=== PATIENT | female | born 1985 | race Caucasian/White ===

== ENCOUNTER 2018-11-30 11:02 | Outpatient (CLI) | payer MEDICAID ==
[~2018-11-30] VITALS: Ht 167.6 cm; Wt 80.6 kg
[~2018-11-30 11:02] MED LIST: ACET325T33 PO; FER325 PO; IBUP-1561 PO; PNV11TAB PO
[2018-11-30 11:18] VITALS: BP 109/65; PULSE 78; RESP 18; Ht 167.6 cm; Wt 80.6 kg
--- NOTE | 2018-11-30 15:57 | TRIAGE ---
OB Triage Datetime Report Generated by CPN: 11/30/2018 15:57 Datetime: 11/30/2018 15:16 Stage of : OB Triage Datetime: 11/30/2018 14:35 Labor Evaluation Frequency: 8-10 Monitor Mode: External Duration (sec)2399: 50-60 Quality: Mild Pattern: Normal: <= 5 Contractions in 10 Minutes Resting Tone [place]: Relaxed Heart Rate FHR Baseline Rate: 135 Monitor Mode: Internal Scalp Electrode Variability: Moderate 6-25 bpm Accelerations: 10X10 Decelerations: None Category: Category I Pain Assessment Pain Scale: 0 Pain Presence: None/Denies Pain Type: N/A Pain Goal: 3 Pain Relief Measures: Comfort Measures Datetime: 11/30/2018 13:33 Stage of : OB Triage Datetime: 11/30/2018 13:12 Labor Evaluation Frequency: 0 Monitor Mode: External Pattern: Normal: <= 5 Contractions in 10 Minutes Resting Tone [place]: Relaxed Heart Rate FHR Baseline Rate: 145 Monitor Mode: External US Variability: Moderate 6-25 bpm Accelerations: 10X10 Decelerations: None Category: Category I Pain Assessment Pain Scale: 0 Pain Presence: None/Denies Pain Type: N/A Pain Goal: 3 Pain Relief Measures: Comfort Measures Datetime: 11/30/2018 11:39 Stage of : OB Triage Assessment Type: Triage Maternal Assessment Level of Consciousness: Keenly Alert, Responsive DTR's/Clonus: DTRs 2+; No Clonus Headache: Denies Blurred Vision: No Respiratory Effort: Unlabored; Regular Rhythm; Equal Expansion Breath Sounds, Left: Clear and Equal Breath Sounds, Right: Clear and Equal Nausea/Vomiting: Denies RUQ Epigastric Pain: Denies Facial Edema: None Temperature Route: Axillary Fall Risk Assessment History of Falling: (0) No Secondary Diagnosis: (0) No Ambulatory Aid: (0) Bedrest/Nurse Assist IV Therapy: (0) No Gait: (0) Normal/Bedrest/Immobile Mental Status: (0) Oriented to Own Ability Fall Score: 0 Fall Risk Score Definition: No Risk: No action required Labor Evaluation Frequency: 6-8 Monitor Mode: External Duration (sec)2399: 50-70 Quality: Mild Pattern: Normal: <= 5 Contractions in 10 Minutes Resting [place]one [place]: Relaxed Heart Rate FHR Baseline Rate: 145 Monitor Mode: External US Variability: Moderate 6-25 bpm Accelerations: 10X10 Decelerations: None Pain Assessment Pain Scale: 0 Pain Presence: None/Denies Pain Type: N/A Pain Goal: 3 Pain Relief Measures: Comfort Measures Datetime: 11/30/2018 11:34 Time of Arrival: 11/30/2018 10:52 EGA: 38.4 Arrived By: Ambulatory Arrived From: Office Chief Complaint: REFERRED FROM DR OFFICE TO EVALUATE FOR PIH, DENIES H/A, BLURRED VISION AND EPIGAS TRIC PAIN Movement: Present Contractions: Denies/Absent Rupture of Membranes: Ruptured Vaginal Bleeding: None Vaginal Discharge: Denies Recent Sexual Intercouse: Denies Abdominal Trauma: Not Applicable Patient Complaints: None Time Provider Notified: 11/30/2018 11:10 Provider Notified: YVROSE Initial Plan: MONITOR, BPP, PIH LABS
--- NOTE | 2018-11-30 19:14 | PN ---
Triage Information Date/Time Reason for visit: Elevated blood pressure Weeks of Gestation 38 weeks and 4 days /Para 2 para 1-0-0-1 Diabetes: none Hypertention: none Objective Vital Signs Date Temp Pulse Resp B/P (MAP) Pulse Ox O2 O2 Flow FiO2 Time Delivery Rate 11/30/18 98.7 78 18 109/65 11:18 (80) Heart Rate: 140's Contractions: None Results/Medications Result Diagram: 11/30/18 1130 11/30/18 1130 Results 24 hrs Laboratory Tests Test 11/30/18 11:15 11/30/18 11:30 Urine Color YELLOW Urine Clarity SLIGHTLY CLOUDY A Urine pH 7.0 Urine Specific [place] 1.005 Urine Ketones NEGATIVE Urine Nitrite NEGATIVE Urine Bilirubin NEGATIVE Urine Urobilinogen NEGATIVE Urine Leukocyte Esterase NEGATIVE Urine Microscopic RBC 6 H Urine Microscopic WBC 3 Urine Squamous Epithelial Cells FEW Urine Bacteria FEW A Urine Yeast (Budding) FEW A Urine Hemoglobin NEGATIVE Urine Glucose NEGATIVE Urine Total Protein NEGATIVE White Blood Count 7.0 # Red Blood Count 3.94 L Hemoglobin 12.5 Hematocrit 36.5 L Mean Corpuscular Volume 92.6 Mean Corpuscular Hemoglobin 31.7 Mean Corpuscular Hemoglobin Concent 34.2 Red Cell Distribution Width 12.7 Platelet Count 200 Mean Platelet Volume 10.6 H Immature Granulocytes % 0.400 Neutrophils % 66.7 Lymphocytes % 25.8 Monocytes % 6.4 Eosinophils % 0.6 Basophils % 0.1 Nucleated Red Blood Cells % 0.0 Immature Granulocytes # 0.030 Neutrophils # 4.7 Lymphocytes # 1.8 Monocytes # 0.5 Eosinophils # 0.0 Basophils # 0.0 Nucleated Red Blood Cells # 0.0 Prothrombin Time 11.2 L Prothrombin Time Ratio 0.9 INR International Normalized Ratio 0.80 Activated Partial Thromboplast Time 24.9 Fibrinogen 491.0 H Sodium Level 137 Potassium Level 3.9 Chloride Level 107 Carbon Dioxide Level 23 Anion Gap 7 Blood Urea Nitrogen 7 Creatinine 0.46 Est Glomerular Filtrat Rate mL/min > 60 Glucose Level 77 Uric Acid 3.7 Calcium Level 9.8 Total Bilirubin 0.4 Direct Bilirubin 0.00 Indirect Bilirubin 0.4 Aspartate Amino Transf (AST/SGOT) 26 Alanine Aminotransferase (ALT/SGPT) 25 Alkaline Phosphatase 153 H Total Protein 6.3 Albumin 3.5 Globulin 2.80 Albumin/Globulin Ratio 1.25 Disposition: Discharge Assessment/Plan 33 years old 2 para 1-0-0-1 with single intrauterine at 38 weeks and 4 days I had one elevated blood pressure in office today. She was sent to triage for further evaluation. She states good movement. She denies nausea, vomiting, shortness of dale th, chest pain, headache, visual changes, vaginal bleeding or LOF. -FHR: No sign of metabolic acidosis- Category I -Contractions: None -All blood pressure in triage where within normal limits -PIH labs within normal limits -Ultrasound performed: Normal PASTOR, BPP 8 out of 8 -Symptoms and sign of labor, preeclampsia, kick count discussed with patient, she voiced understanding. All of her questions answered. -Patient was discharged home in stable condition with the appropriate discharge instructions provided. I would like patient to have close follow-up with her primary physician or outpatient clinic in 1-2 days or return to triage for worsening symptoms or any other urgent concerns. ARGENIS JEFFERS Nov 30, 2018 19:14
== END 2018-11-30 15:45 | disposition home or self-care (01) ==
LOC: OBT 11:02 → L-D 11:03 → OBT 15:45
PROVIDERS: ATTEND Obstetrics & Gynecology
DX: O26.893 Other specified pregnancy related conditions, third trimester (principal); R10.13 Epigastric pain; Z3A.38 38 weeks gestation of pregnancy
CPT/HCPCS: 76818; 80053; 81001; 81003; 84560; 85025; 85384; 85610; 85730; G0463

== ENCOUNTER 2018-12-07 04:12 | Inpatient (IN) | payer MEDICAID ==
[~2018-12-07] VITALS: Ht 170.2 cm; Wt 80.5 kg
[2018-12-07 04:28] VITALS: Ht 170.2 cm; Wt 80.5 kg
[2018-12-07 04:29] VITALS: BP 119/79; PULSE 69; RESP 18
[2018-12-07] MEDS ORDERED: LACTATED RINGER'S 1,000 ML IV PRN (04:43)
[2018-12-07] MEDS ORDERED: LACTATED RINGER'S 1,000 ML IV SCH (04:43)
[2018-12-07] MEDS ORDERED: LIDOCAINE 1% (MPF) 30 ML INJ ONE (04:51)
[2018-12-07] MEDS ORDERED: MINERAL OIL LIGHT 10 ML VIAL ONE (04:51)
[2018-12-07] MEDS ORDERED: OXYTOCIN 30 UNITS/LR 500 ML IV ONE ×2 (04:51)
[2018-12-07] MEDS ORDERED: BUTORPHANOL 2 MG INJ IV PRN (05:00)
[2018-12-07] MEDS ORDERED: CARBOPROST 250 MCG INJ IM PRN ×2 (05:00→06:00)
[2018-12-07] MEDS ORDERED: OXYTOCIN 30 UNITS/LR 500 ML IV SCH ×3 (05:00→05:52)
[2018-12-07] MEDS ORDERED: LIDOCAINE 1% (MPF) 30 ML INJ INJ PRN (05:00)
[2018-12-07] MEDS ORDERED: METHYLERGONOVINE 0.2 MG INJ IM PRN ×2 (05:00→06:00)
[2018-12-07] MEDS ORDERED: IBUPROFEN 600 MG TAB PO PRN (05:00)
[2018-12-07] MEDS ORDERED: OXYTOCIN 30 UNITS/LR 500 ML IV PRN ×2 (05:00→06:00)
[2018-12-07] MEDS ORDERED: MISOPROSTOL 200 MCG TAB PR PRN ×2 (05:00→06:00)
--- NOTE | 2018-12-07 05:26 | PREAC ---
Date/Time of Note Date/Time of Note DATE: 12/07/18 TIME: 05:24 Anesthesia Eval and Record Evaluation Time Pre-Procedure Interview DATE: 12/07/18 TIME: 05:24 Age 33 Sex female NPO: Other Preoperative diagnosis labor Planned procedure epidural Past Medical History Past Medical History: None Surgery & Anesthesia Issues No known issue Meds Anticoagulation: No Beta Vanessa within 24 hr: No Reason Beta Vanessa not given: Pt. not on B-Vanessa Reported Medications Ferrous Sulfate* (Ferrous Sulfate*) 325 Mg Tabec, 325 MG PO BID, TAB 12/07/18 [id number]-[id number] ( ) 1 Each Tablet, 1 TAB PO DAILY, TAB 11/30/18 Current Medications Lactated Ringer's 1,000 ml @ 125 mls/hr Q8H IV ; Start 12/07/18 at 04:43 Butorphanol Tartrate (Stadol) 2 mg Q2H PRN IV .PAIN SCALE 6-10; Start 12/07/18 at 05:00 Lidocaine (Xylocaine 1% (Mpf)) 30 ml ONCE PRN INJ .EPISIOTOMY; Start 12/07/18 at 05:00 Oxytocin/Lactated Ringer's 500 ml @ 500 mls/hr ONCE POST IV ; Start 12/07/18 at 05:00 Oxytocin/Lactated Ringer's 500 ml @ 125 mls/hr POST IV ; Start 12/07/18 at 05:00 Ibuprofen (Motrin) 600 mg ONCE PRN PO .PAIN 1-5; Start 12/07/18 at 05:00 Lactated Ringer's 1,000 ml @ 2,000 mls/hr Q30M PRN IV .ANESTHESIA; Start 12/07/18 at 04:43 Oxytocin/Lactated Ringer's 500 ml @ 0 mls/hr ONCE PRN IV .VAGINAL BLEEDING; Start 12/07/18 at 05:00 Methylergonovine Maleate (Methergine) 0.2 mg ONCE PRN IM .VAGINAL BLEEDING; Start 12/07/18 at 05:00 Carboprost Tromethamine (Hemabate) 250 mcg ONCE PRN IM .VAGINAL BLEEDING; Start 12/07/18 at 05:00 Misoprostol (Cytotec) 1,000 mcg ONCE PRN NE .VAGINAL BLEEDING; Start 12/07/18 at 05:00 Meds reviewed: Yes Allergies Coded Allergies: No Known Allergy (Unverified , 12/07/18) Allergies Reviewed: Yes Labs/Studies Labs Reviewed: Reviewed by anesthesiologist test: N/A Pre-procedure Exam Last vitals Vital Signs Date Temp Pulse Resp B/P (MAP) Pulse Ox O2 O2 Flow FiO2 Time Delivery Rate 12/07/18 98.0 69 18 119/79 Room Air 04:29 (92) Airway: Adequate mouth opening, Adequate thyromental dist Mallampati: Mallampati III Teeth: Normal Lung: Normal Heart: Normal ASA Physical Status ASA physical status: 2 Emergency: None Pre-operative Attestations Prior to commencing anesthesia and surgery, the patient was re-evaluated, there was verification of: *The patient's identity *The results of appropriate recent lab work and preoperative vital signs *The above evaluation not changing prior to induction *Anesthetic plan, risk benefits, alternative and complications discussed with patient/family; questions answered; patient/family understands, accepts and wishes to proceed. SHANT AVALOS DO Dec 07, 2018 05:26
[2018-12-07] MEDS ORDERED: NALOXONE (0.4 MG/ML) INJ IV PRN (05:30)
[2018-12-07] MEDS ORDERED: FENTAnyl 2MCG/ML-ROPIV 0.2% 100 ML BAG EPI SCH (05:30)
--- NOTE | 2018-12-07 05:52 | LDN ---
Date/Time of Note Date/Time of Note DATE: 12/07/18 TIME: 05:51 Delivery Summary Weeks of Gestation 39 Placenta Delivered: Spontaneously Meconium: none Episiotomy: No Perineal laceration: 1 Laceration repair: 1st degree perineal laceration repair with 3-0 chromic Anesthesia type: Local Estimated blood loss: 200 Sponge & Needle done & correct: Yes All needle counts correct: Yes Any foreign bodies felt in the: No Delivery Information Sex Infant Sex: male Apgars 1 Minute: 8 5 Minute: 9 Suctioning Nose & mouth suctioned at betty: No Delee suction performed: No Umbilical Cord Umbilical cord with: 3 Vessels Cord presentations: no nuchal cord Cord Blood was obtained: Yes DARLENE SOLIS MD Dec 07, 2018 05:52
[2018-12-07] MEDS ORDERED: NACL 0.9% 3 ML SYG IV SCH (06:00)
[2018-12-07] MEDS ORDERED: ONDANSETRON 4 MG INJ IV PRN (06:00)
[2018-12-07] MEDS ORDERED: ACETAMINOPHEN 325 MG TAB PO PRN (06:00)
[2018-12-07] MEDS ORDERED: OXYCODONE/ASPIRIN (4.88/325) TAB PO PRN ×2 (06:00)
[2018-12-07] MEDS ORDERED: BENZOCAINE 20% 56 ML SPRAY TOP PRN (06:00)
[2018-12-07] MEDS ORDERED: WITCH HAZEL/GLYCERIN PAD PR PRN (06:00)
[2018-12-07] MEDS ORDERED: LANOLIN HPA 1 PKT TOP PRN (06:00)
--- NOTE | 2018-12-07 06:43 | PREOPHP ---
DATE OF ADMISSION: 12/07/2018 HISTORY OF PRESENT ILLNESS: Ms. Tamika Tucker is a 33-year-old 3, para 1, EDC 12/08 inch at 39+ weeks gestational age, presented to triage in active labor. She reports of having regular contractions since early this morning. She reports good movement. She denie s any vaginal bleeding or discharge. [facility] care took [facility] at [facility]. PAST MEDICAL HISTORY: None. MEDICATIONS: vitamins. PAST SURGICAL HISTORY: None. OBSTETRICAL HISTORY: Times 1 vaginal delivery, x1 missed AB. GYNECOLOGIC HISTORY: Twelve, regular 3 to 4 days. Denies any sexually transmitted infection. Sexua lly active with 1 partner. SOCIAL HISTORY: Denies any smoking, drugs or alcohol. FAMILY HISTORY: None. REVIEW OF SYSTEMS: All within normal except history of present illness. PHYSICAL EXAMINATION: HEENT: Within normal. LUNGS: CTA bilateral. CARDIOVASCULAR: S1, S2, regular rhythm. ABDOMEN: Gravid, nontender. Negative CVA bilateral. EXTREMITIES: Negative edema. No calf tenderness. PELVIC: Vaginal exam on admission, 7 cm dilated, 80% effaced, -2 station, intact. heart candis ng category 1. [place] regular contractions. ASSESSMENT: Intrauterine at term, in active labor. PLAN: Anticipate vaginal delivery. Dictated By: DARLENE RIZVI/JALIL Conf#: [id number] DID#: [id number]
--- NOTE | 2018-12-07 07:03 | TRIAGE ---
OB Triage Datetime Report Generated by CPN: 12/07/2018 07:03 Datetime: 12/07/2018 05:56 Stage of : Recovery Pain Assessment Pain Scale: 0 Datetime: 12/07/2018 05:39 Stage of : Recovery Temperature Route: Oral Pain Assessment Pain Scale: 3 Pain Presence: Intermittent Pain Type: Contraction Pain Location: Abdomen Datetime: 12/07/2018 05:38 Vaginal Exam Dilatation (cms): 10.0 Station: 4 Datetime: 12/07/2018 05:31 Presentation 'A': Cephalic Datetime: 12/07/2018 05:26 Membrane Status: Ruptured Datetime: 12/07/2018 05:24 Membrane Status: Ruptured Membranes Rupture Method: Artificial Amniotic Fluid Color: Clear Amniotic Fluid Amount: Large Amniotic Fluid Odor: None Datetime: 12/07/2018 05:22 Vaginal Exam Dilatation (cms): 10.0 Effacement (%): 100 Station: -2 Exam By: ESHAGIAN Vaginal Bleeding: Normal Show Cervix, Consistency: Soft Cervix, Position: Midposition Lie 'A': Longitudinal Datetime: 12/07/2018 05:00 Assessment Type: Admission Assessment Vaginal Bleeding: None Maternal Assessment Level of Consciousness: Keenly Alert, Responsive DTR's/Clonus: DTRs 2+; No Clonus Headache: Denies Blurred Vision: No Respiratory Effort: Unlabored; Regular Rhythm; Equal Expansion Breath Sounds, Left: Clear and Equal Breath Sounds, Right: Clear and Equal Nausea/Vomiting: Denies RUQ Epigastric Pain: Denies Facial Edema: None Fall Risk Assessment History of Falling: (0) No Secondary Diagnosis: (0) No Ambulatory Aid: (0) Bedrest/Nurse Assist IV Therapy: (0) No Gait: (0) Normal/Bedrest/Immobile Mental Status: (0) Oriented to Own Ability Fall Score: 0 Fall Risk Score Definition: No Risk: No action required Pain Assessment Pain Scale: 8 Pain Presence: Intermittent Pain Type: Contraction Pain Location: Abdomen Vaginal Exam Dilatation (cms): 8.0 Effacement (%): 100 Station: -2 Exam By: GLORIA Membrane Status: Bulging Vaginal Bleeding: Normal Show Cervix, Consistency: Soft Cervix, Position: Midposition Lie 'A': Longitudinal Datetime: 12/07/2018 04:43 Stage of : OB Triage Labor Evaluation Frequency: 1.5-4 Monitor Mode: External Duration (sec)2399: 40-130 Quality: Strong Pattern: Normal: <= 5 Contractions in 10 Minutes Resting Tone [place]: Relaxed Heart Rate FHR Baseline Rate: 140 Monitor Mode: External US Variability: Moderate 6-25 bpm Accelerations: 10X10 Decelerations: Early Datetime: 12/07/2018 04:38 Stage of : OB Triage Datetime: 12/07/2018 04:34 Stage of : OB Triage Vaginal Exam Dilatation (cms): 7.0 Effacement (%): 90 Station: -1 Exam By: CHRISTINA Jerome Membrane Status: Bulging Vaginal Bleeding: Scant Cervix, Consistency: Soft Cervix, Position: Midposition Presentation 'A': Cephalic Datetime: 12/07/2018 04:23 Stage of : OB Triage Assessment Type: Triage Maternal Assessment Level of Consciousness: Keenly Alert, Responsive DTR's/Clonus: DTRs 2+; No Clonus Headache: Denies Blurred Vision: No Respiratory Effort: Unlabored; Regular Rhythm; Equal Expansion Breath Sounds, Left: Clear and Equal Breath Sounds, Right: Clear and Equal Nausea/Vomiting: Denies RUQ Epigastric Pain: Denies Lower Extremities Edema: None Degree: None Upper Extremities Edema: None Degree: None Facial Edema: None Temperature Route: Oral Fall Risk Assessment History of Falling: (0) No Secondary Diagnosis: (0) No Ambulatory Aid: (0) Bedrest/Nurse Assist IV Therapy: (0) No Gait: (0) Normal/Bedrest/Immobile Mental Status: (0) Oriented to Own Ability Fall Score: 0 Fall Risk Score Definition: No Risk: No action required Pain Assessment Pain Scale: 6 Pain Presence: Intermittent Pain Type: Cramping Pain Location: Abdomen; Back Pain Relief Measures: Comfort Measures Datetime: 12/07/2018 04:21 Monitor Mode: External Contraction Comments: [place] applied Heart Rate FHR Baseline Rate: 135 Monitor Mode: External US Comments: EFM applied Datetime: 12/07/2018 04:20 Time of Arrival: 12/07/2018 04:05 EGA: 39.6 Arrived By: Ambulatory Arrived From: Home Chief Complaint: UCs [id number] Movement: Present Contractions: Regular Time Contractions Began: 12/06/2018 23:30 Contractions: [id number] Rupture of Membranes: Denies Vaginal Bleeding: Small Vaginal Discharge: Present Abdominal Trauma: Not Applicable Patient Complaints: Contractions; Cramping Time Provider Notified: 12/07/2018 04:38 Provider Notified: Initial Plan: Monitor, VE Datetime: 11/30/2018 11:39 Fall Score: 0 Fall Risk Score Definition: No Risk: No action required Membranes Ruptured Date/Time: 12/07/2018 05:24 Membranes Rupture Method: Artificial Amniotic Fluid Color: Clear Amniotic Fluid Amount: Large Amniotic Fluid Odor: None Datetime: 11/30/2018 11:34 EGA: 38.4
[2018-12-07 08:15] VITALS: BP 115/76; PULSE 71; RESP 17
[2018-12-07 08:45] VITALS: BP 108/66; PULSE 64; RESP 18
[2018-12-07] MEDS: SENNA/DOCUSATE NA (8.6MG/50MG) TAB PO SCH ×2 (09:47→21:40)
[2018-12-07 11:57] VITALS: BP 107/67; PULSE 63; RESP 17
[2018-12-07] MEDS: IBUPROFEN 600 MG TAB PO SCH ×3 (11:59→23:59)
[2018-12-07 17:14] VITALS: BP 102/66; PULSE 65; RESP 18
[2018-12-07 19:55] VITALS: BP 107/66; PULSE 70; RESP 18
[2018-12-08 03:55] VITALS: BP 97/54; PULSE 68; RESP 19
[2018-12-08] MEDS: IBUPROFEN 600 MG TAB PO SCH ×4 (05:41→23:46)
--- NOTE | 2018-12-08 08:25 | PAC ---
Date/Time of Note Date/Time of Note DATE: 12/08/18 TIME: 08:25 Post-Anesthesia Notes Post-Anesthesia Note Last documented vital signs Vital Signs Date Temp Pulse Resp B/P (MAP) Pulse Ox O2 O2 Flow FiO2 Time Delivery Rate 12/08/18 98.0 68 19 97/54 (68) Room Air 03:55 Activity: WNL Respiratory function: WNL Cardiovascular function: WNL Mental status: Baseline Pain reasonably controlled: Yes Hydration appropriate: Yes Nausea/Vomiting absent: Yes SHANT AVALOS DO Dec 08, 2018 08:25
[2018-12-08 08:30] VITALS: BP 101/57; PULSE 69; RESP 16
[2018-12-08] MEDS: SENNA/DOCUSATE NA (8.6MG/50MG) TAB PO SCH ×2 (09:16→21:00)
--- NOTE | 2018-12-08 10:48 | PD.PPDC ---
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
--- NOTE | 2018-12-08 10:50 | DS ---
Date/Time of Note Date/Time of Note DATE: 12/08/18 TIME: 10:49 Obstetrical Discharge Record Final Diagnosis Final Diagnosis: Term delivered Vaginal Delivery Obstetrical Delivery: Spontaneous, Laceration, Repaired Condition on Discharge Physical Assessment Last Vitals: stable afebrile Voiding: Yes Bowel Movement: Yes Breast: Soft, non-tender, Filling Fundus: Firm Calf Tenderness: No Patient Condition: Fair DARLENE SOLIS MD Dec 08, 2018 10:49
[2018-12-08 16:26] VITALS: BP 107/70; PULSE 68; RESP 18
[2018-12-08 20:15] VITALS: BP 101/62; PULSE 71; RESP 18
[2018-12-09 04:30] VITALS: BP 92/62; PULSE 65; RESP 18
[2018-12-09] MEDS: IBUPROFEN 600 MG TAB PO SCH ×2 (05:40→11:21)
[2018-12-09 08:05] VITALS: BP 103/66; PULSE 66; RESP 18
[2018-12-09] MEDS: SENNA/DOCUSATE NA (8.6MG/50MG) TAB PO SCH (09:00)
--- NOTE | 2018-12-10 15:50 | DELSUM ---
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 Babies in Womb: 1 Attempted: No Labor Anesthesia: None LABOR INFORMATION Reason for Induction: Not Applicable Complete Dilatation: 12/07/2018 05:22 Group B Beta Strep: Negative Antibiotics # of Doses: 0 Steroids Given: None Reason Steroids Not Administered: Not Applicable MEMBRANES Membranes Rupture Method: Artificial Rupture of Membranes: 12/07/2018 05:24 Length of Rupture (hr): 0.17 Amniotic Fluid Color: Clear Amniotic Fluid Amount: Large Amniotic Fluid Odor: None STAGES OF LABOR Stage 2 hr: 0 Stage 2 min: 12 Stage 3 hr: 0 Stage 3 min: 2 VAGINAL DELIVERY Episiotomy: None Laceration Extension: First Degree Laceration Type: Perineal Laceration Repair: Yes Initial Vag Sponge Count: 10 Final Vag Sponge Count: 10 Initial Vag Sharps Count: 2 Final Vag Sharps Count: 2 Sponge Count Correct: Yes; Vaginal Sweep Performed Sharps Count Correct: Yes BABY A INFORMATION Delivery Date/Time: 12/07/2018 05:34 Method of Delivery: Vaginal Born in Route : No : N/A Forceps: N/A Vacuum Extraction: N/A Shoulder Dystocia : N/A SHOULDER DYSTOCIA BABY A Infant Delivery Date/Time: 12/07/2018 05:34 PRESENTATION/POSITION BABY A Presentation: Cephalic Cephalic Presentation: Vertex Vertex Position: Right Occipital Anterior Breech Presentation: N/A PLACENTA INFORMATION BABY A Placenta Delivery Time : 12/07/2018 05:36 Placenta Method of Delivery: Expressed Placenta Status: Delivered SCORES BABY A Heart Rate 1 min: >100 bpm Resp Effort 1 min: Good Cry Reflex Irritability 1 min: Cough/Sneeze/Pulls Away Muscle Tone 1 min: Active Motion Color 1 min: Blue/Pale Resuscitation Effort 1 min: Tactile Stimulation SCORE 1 MIN: 8 Heart Rate 5 min: >100 bpm Resp Effort 5 min: Good Cry Reflex Irritability 5 min: Cough/Sneeze/Pulls Away Muscle Tone 5 min: Active Motion Color 5 min: Body [place], Extremit Blue Resuscitation Effort 5 min: Tactile Stimulation SCORE 5 MIN: 9 INFANT INFORMATION BABY A Gestational Age at Delivery: 39.6 Gestational Status: Full Term- 39- 40.6 Weeks Infant Outcome : Liveborn, with signs of life Infant Condition : Stable Infant Sex: Male IDENTIFICATION/MEDS BABY A ID Band Number: [id number] ID Band Location: Right Leg; Left Arm Sensor Applied: Yes Sensor Number: [id number] Sensor Location : Cord Clamp Vitamin K Given : Not Given Erythromycin Given: Not Given WEIGHT/LENGTH BABY A Birthweight (gm): 3525 Weight (lb): 7 Infant Weight (oz): 12 Infant Length (in): 19.50 Infant Length (cm): 49.53 CORD INFORMATION BABY A No. Cord Vessels: 3 Nuchal Cord : N/A Cord Blood Taken: Yes Suction: Mouth; Nose
== END 2018-12-09 15:50 | disposition home or self-care (01) | DRG 807 ==
LOC: OBT 04:12 → L-D 04:15 → OBT 04:34 → PP1 07:44
PROVIDERS: ADMIT Obstetrics & Gynecology; ATTEND Obstetrics & Gynecology
PROC: 10E0XZZ Delivery of Products of Conception, External Approach (ICD-10-PCS; principal; 2018-12-07)
PROC: 0HQ9XZZ Repair Perineum Skin, External Approach (ICD-10-PCS; 2018-12-07)
DX: O70.0 First degree perineal laceration during delivery (principal); Z37.0 Single live birth; Z3A.39 39 weeks gestation of pregnancy
CPT/HCPCS: 85025; 85610; 85730; 86592; 86850; 86900; 86901; G0463; J2590; J7120

== ENCOUNTER 2018-12-17 12:43 | Emergency (ER) | payer MEDICAID ==
[~2018-12-17] VITALS: Ht 175.3 cm; Wt 74.3 kg
[~2018-12-17 12:43] MED LIST changes: -FER325 PO
[2018-12-17 12:48] VITALS: BP 144/79; PULSE 74; RESP 18; Ht 175.3 cm; Wt 74.3 kg
--- NOTE | 2018-12-17 13:24 | ERD ---
ER Documentation Chief Complaint Chief Complaint left side neck pain & swelling x3 days had baby 1wk ago HPI 33-year-old female, status post 10 days ago, presents to the emergency department, complaining of 3 days with progressive worsening of left neck pain and swelling. No history of trauma, the patient denies fever, no chills, no sore throat, no ear pain. The patient denies difficulty swallowing, no shortness of breath, no cough. The patient is currently breast-feeding without difficulty. She refers normal vaginal bleeding, non-malodorous. ROS All systems reviewed and are negative except as per history of present illness. Medications Home Meds Active Scripts Ibuprofen* (Motrin*) 400 Mg Tab, 400 MG PO TID PRN for PAIN AND OR ELEVATED TEMP, #20 TAB Prov:JAIME FARNSWORTH MD 12/17/18 Acetaminophen* (Tylenol*) 325 Mg Tablet, 2 TAB PO Q6 PRN for PAIN AND OR ELEVATED TEMP, #20 TAB Prov:JAIME FARNSWORTH MD 12/17/18 Reported Medications [id number] ( 19) 1 Each Tablet, 1 TAB PO DAILY, TAB 11/30/18 Allergies Allergies: Coded Allergies: No Known Allergy (Unverified , 12/17/18) PMhx/Soc Medical and Surgical Hx: pt denies Medical Hx History of Surgery: No Anesthesia Reaction: No Hx Neurological Disorder: No Hx Respiratory Disorders: No Hx Cardiac Disorders: No Hx Psychiatric Problems: No Hx Miscellaneous Medical Probl: No Hx Alcohol Use: No Hx Substance Use: No Hx Tobacco Use: No Smoking Status: Never smoker FmHx Family History: No diabetes, No coronary disease Physical Exam Vitals Vital Signs Date Temp Pulse Resp B/P (MAP) Pulse Ox O2 O2 Flow FiO2 Time Delivery Rate 12/17/18 97.9 74 18 144/79 97 12:48 (100) Physical Exam Patient alert, oriented, vital signs stable. HEAD: Normocephalic, atraumatic. EYES: PERRLA, EOMI, Sclera and conjunctiva appear normal. NOSE: Clear and patent nostrils. EARS: Canals clear, tympanic membranes WNL. MOUTH: normal lips and tongue, no oral lesions. THROAT: Normal oropharynx, no tonsillar exudates. NECK: Supple, 10 x 10 cm left supraclavicular area of fullness, tender to palpation without erythema or warmth, full ROM. HEART: RRR, no rubs, murmurs, clicks or gallops. LUNGS: Clear to auscultation. ABDOMEN: Soft, non-tender without masses or hepatosplenomegaly. EXTREMITIES: No edema bilaterally. BACK: Full ROM, no deformity, normal back exam NEURO: Cranial nerves grossly intact, no motor or sensory deficit SKIN: No rashes, no petechia. Result Diagram: 12/17/18 1327 12/17/18 1327 Results 24 hrs Laboratory Tests Test 12/17/18 13:27 12/17/18 13:37 White Blood Count 8.1 10^3/ul Red Blood Count 4.50 10^6/ul Hemoglobin 14.4 g/dl Hematocrit 42.5 % Mean Corpuscular Volume 94.4 fl Mean Corpuscular Hemoglobin 32.0 pg Mean Corpuscular Hemoglobin Concent 33.9 g/dl Red Cell Distribution Width 12.5 % Platelet Count 280 10^3/UL Mean Platelet Volume 9.7 fl Immature Granulocytes % 0.200 % Neutrophils % 64.0 % Lymphocytes % 27.5 % Monocytes % 6.7 % Eosinophils % 1.4 % Basophils % 0.2 % Nucleated Red Blood Cells % 0.0 /100WBC Immature Granulocytes # 0.020 10^3/ul Neutrophils # 5.2 10^3/ul Lymphocytes # 2.2 10^3/ul Monocytes # 0.5 10^3/ul Eosinophils # 0.1 10^3/ul Basophils # 0.0 10^3/ul Nucleated Red Blood Cells # 0.0 10^3/ul Sodium Level 141 mmol/L Potassium Level 3.8 mmol/L Chloride Level 105 mmol/L Carbon Dioxide Level 30 mmol/L Anion Gap 6 Blood Urea Nitrogen 11 mg/dl Creatinine 0.65 mg/dl Est Glomerular Filtrat Rate mL/min > 60 mL/min Glucose Level 93 mg/dl Calcium Level 9.4 mg/dl Thyroid Stimulating Hormone (TSH) 1.070 MIU/L POC Beta HCG, Qualitative NEGATIVE Current Medications Medications Dose Sig/Aleks Start Time Status Last (Trade) Ordered Route PRN Stop Time Admin Dose Reason Admin Iohexol 150 ml STK-MED 12/17/18 DC (Omnipaque ONCE .ROUTE 14:52 300mg/ ml) 12/17/18 14:53 Sodium 100 ml @ STK-MED 12/17/18 DC Chloride ONCE .ROUTE 14:52 12/17/18 14:53 Radiology Main Line: [phone] DIAGNOSTIC IMAGING REPORT Patient: ADALBERTO MARIE : 1985 Age: 33 Sex: F MR #: [id number] DOS: 12/17/18 1318 Ordering MD: JAIME FARNSWORTH MD Location: [facility] Room/Bed: PROCEDURE: CT Neck with contrast CLINICAL INDICATION: Left supraclavicular mass. TECHNIQUE: CT of the neck was performed following the intravenous administration of 85 cc of Omnipaque-300 IV Contrast. Axial images were obtained through the neck with multiplanar reformatted images generated from the axial acquired data. The administered radiation dose was CTDI vol = 8.29 mGy, DLP = 205.67 mGy-cm. One or more of the following dose reduction techniques were used: Automated exposure control, Adjustment of the mA and/or kV according to patient size, or Use of iterative reconstruction technique. DICOM images are available. COMPARISON: There are no similar studies submitted for comparison. FINDINGS: Venous contrast noted within the left supraclavicular region. Otherwise no left supraclavicular lesion is identified. SKULL: The visualized portions of the brain are grossly unremarkable.The visualized paranasal sinuses are well aerated.The bilateral mastoid air cells are within normal limits. PAROTID GLANDS: Unremarkable. SUBMANDIBULAR GLANDS: Unremarkable. THYROID GLAND: Unremarkable. VASCULATURE: The bilateral vascular structures are patent. LYMPH NODES: Multiple small lymph nodes are identified in the neck in levels I-V which are not pathologically enlarged or necrotic. The lymph nodes are relatively bilateral and symmetric in distribution. AERODIGESTIVE TRACT: There is streak artifact from dental hardware limiting evaluation of the oral cavity.No primary aerodigestive tract lesion is identified. THORAX: The lung apices are unremarkable. OSSEOUS STRUCTURES: No destructive lytic or blastic osseous lesion is identified.There is reversal of the cervical lordosis suggesting muscle spasm. IMPRESSION: 1. Venous contrast noted within the left supraclavicular region. Otherwise no left supraclavicular lesion is identified. 2. No cervical adenopathy. Further findings as detailed above. RPTAT: PP Procedures/MDM Differential diagnosis include but not limited to: Lymphadenopathy, goiter, malignancy, cervical sprain/strain, cervical radiculopathy, herniated disk, m uscle spasm. Neurovascular exam grossly intact. no clinical findings suggestive of acute infectious process, no acute deformity, no edema, no rashes. Physical examination and clinical presentation consistent most likely with soft tissue edema. Results and clinical impression discussed with the patient who agrees with management. The patient is stable to be treated outpatient and will be discharge d home with recommendations and close monitoring The patient was instructed to follow up with the primary care provider in the next 48h. If symptoms persist, worsen or new symptoms develop, then patient should return to the ED immediately. Instructions explained and given to patient with acknowledgment and demonstrated understanding. Disclaimer: Inadvertent spelling and grammatical errors are likely due to EHR/dictation software use and do not reflect on the overall quality of patient care. Also, please note that the electronic time recorded on this note does not necessarily reflect the actual time of the patient encounter. Departure Diagnosis: Primary Impression: Neck pain Condition: Stable Patient Instructions: Neck Pain, No Trauma Additional Instructions: Muchas cindy por [facility] para cummins servicio. Esperamos que en cummins visita a la demian de emergencia cummins problema medico haya sido solucionado y que se sienta mucho mejor. Para estar seguros que cummins mejoria sigue en proceso, le pedimos el favor de hacer alisa gunnar de seguimiento medico con cummins doctor primario en los proximos 2-4 benitez. Lleve con usted estos documentos y las medicinas recetadas. Si lupe sintomas empeoran, NO SE ESPERE, por favor regrese a demian de emergencia INMEDIATAMENTE. En christiano que usted no tenga un mdico de atencin primaria: Llame al mdico o clnica comunitaria de referencia que aparece abajo vivian las horas de consultorio para hacer alisa gunnar para que le vean. CLINICAS: [facility] [phone] [facility] [phone] [facility] [phone] [facility] [phone] [facility] [phone] [facility]. [phone] JAIME RAMIREZ MD Dec 17, 2018 13:24
[2018-12-17] MEDS ORDERED: SOD CHLORIDE 0.9% 100 ML ONE (14:52)
[2018-12-17] MEDS ORDERED: IOHEXOL 300MG/ML 150 ML BTL ONE (14:52)
== END 2018-12-17 16:03 | disposition home or self-care (01) ==
LOC: FTE 12:43
DX: M54.2 Cervicalgia (principal)
CPT/HCPCS: 70490; 80048; 81025; 84443; 85025; Q9967; Z7502; Z7610